=== PATIENT | male | born 1990 | race Caucasian/White ===

== ENCOUNTER 2020-05-06 20:30 | Emergency (ER) | payer SELFPAY ==
--- NOTE | 2020-05-06 20:56 | ER Document Report ---
ED Medical Screen (RME) - General Chief Complaint: Elbow Injury Stated Complaint: ELBOW PAIN Time Seen by Provider: 05/06/20 20:52 Primary Care Provider: BRIDGET ARZATE [Primary Care Provider] - Follow up as needed Mode of Arrival: Ambulatory Information source: Patient Notes: Otherwise healthy 29-year-old male presents the emergency department chief complaint of pain to his left arm. Patient reports pain in the left elbow that radiates down into his left fourth and fifth fingers. He states his fingers feel like they are burning. He denies any specific injury to these areas. He did have a laceration to his hand prior to the onset of the symptoms. Cap refill less than 3 seconds, normal motor and sensation distal to area of concern. No obvious swelling, erythema or ecchymosis. I have greeted and performed a rapid initial assessment of this patient. A comprehensive ED assessment and evaluation of the patient, analysis of test results and completion of the medical decision making process will be conducted by additional ED providers. I have specifically instructed the patient or family members with the patient to immediately return to any nursing staff should anything change in the patient's condition or with their chief complaint. - Related Data Allergies/Adverse Reactions: acetaminophen [From Vicodin] Allergy (Mild, Verified 06/29/13 07:11) hydrocodone bitartrate [From Vicodin] Allergy (Mild, Verified 06/29/13 07:11) morphine [Morphine] Allergy (Mild, Verified 06/29/13 07:11) Physical Exam - Vital signs Vitals: Temp Pulse Resp BP Pulse Ox 98.5 F 76 16 152/87 H 98 05/06/20 20:44 05/06/20 20:44 05/06/20 20:44 05/06/20 20:44 05/06/20 20:44 Course - Vital Signs Vital signs: Temp Pulse Resp BP Pulse Ox 98.5 F 76 16 152/87 H 98 05/06/20 20:50 05/06/20 20:44 05/06/20 20:44 05/06/20 20:44 05/06/20 20:44 Doctor's Discharge - Discharge Referrals: BRIDGET ARZATE [Primary Care Provider] - Follow up as needed
--- NOTE | 2020-05-06 21:32 | RADIOLOGY REPORT (SQ) ---
4 VIEWS OF LEFT ELBOW HISTORY: Pain from elbow to fingers. COMPARISON: None. FINDINGS: No acute fracture or dislocation is seen. The joint spaces are preserved. No elbow joint effusion is evident. IMPRESSION: No acute fracture or malalignment.
[2020-05-06] MEDS ORDERED: PREDNISONE 20 MG TABLET PO ONE (22:11)
[2020-05-06 22:38] VITALS: BP 143/91
--- NOTE | 2020-05-07 01:27 | ER Document Report ---
Entered by LRAA DOWLING SCRIBE 05/06/20 [id number] Acting as scribe for:DONOVAN NAZARIO IV, MD ED Extremity Problem, Upper - General Chief Complaint: Elbow Injury Stated Complaint: ELBOW PAIN Time Seen by Provider: 05/06/20 20:52 Primary Care Provider: BRIDGET ARZATE [NO LOCAL MD] - Follow up as needed BRENNAN MCINTOSH JR, [ACTIVE PROVISIONAL STAFF] - 05/07/20 (Call 05/07/20 to schedule follow up appointment) Mode of Arrival: Ambulatory Information source: Patient Notes: This 29 year old male patient presents to the ED today with complaints of left elbow pain that started prior to arrival. Patient describes that pain as a burning sensation that radiates down to his 4th and 5th fingers of his left hand. He also states that he feels a numbing sensation to his 4th and 5th fingers "every once in a while." He reports that the pain is better when his left arm is in a supine position and worse when the arm is bent towards his body. Denies any neck pain. He notes that he sustained a laceration to the pad of his left thumb x2 months prior that he treated with peroxide and bandaged. Patient is left hand dominant. - Related Data Allergies/Adverse Reactions: acetaminophen [From Vicodin] Allergy (Mild, Verified 06/29/13 07:11) hydrocodone bitartrate [From Vicodin] Allergy (Mild, Verified 06/29/13 07:11) morphine [Morphine] Allergy (Mild, Verified 06/29/13 07:11) Past Medical History - General Information source: Patient - Social History Smoking Status: Current Every Day Smoker Cigarette use (# per day): Yes Chew tobacco use (# tins/day): No Smoking Education Provided: No Family History: Reviewed & Not Pertinent Patient has suicidal ideation: No Patient has homicidal ideation: No Review of Systems - Review of Systems Constitutional: No symptoms reported EENT: No symptoms reported Cardiovascular: No symptoms reported Respiratory: No symptoms reported Gastrointestinal: No symptoms reported Genitourinary: No symptoms reported Male Genitourinary: No symptoms reported Musculoskeletal: See HPI, Joint pain - Left elbow. denies: Neck pain Skin: No symptoms reported Hematologic/Lymphatic: No symptoms reported Neurological/Psychological: See HPI, Numbness - 4th and 5th digits of left hand -: Yes All other systems reviewed and negative Physical Exam - Vital signs Vitals: Temp Pulse Resp BP Pulse Ox 98.5 F 76 16 152/87 H 98 05/06/20 20:44 05/06/20 20:44 05/06/20 20:44 05/06/20 20:44 05/06/20 20:44 - General General appearance: Alert In distress: None - HEENT Head: Normocephalic, Atraumatic Eyes: Normal Pupils: PERRL - Respiratory Respiratory status: No respiratory distress Chest status: Nontender Breath sounds: Normal Chest palpation: Normal - Cardiovascular Rhythm: Regular Heart sounds: Normal auscultation Murmur: No Friction rub: No Gallop: None auscultated Normal capillary refill: Yes - Abdominal Inspection: Normal Distension: No distension Bowel sounds: Normal Tenderness: Nontender - Abdomen soft Organomegaly: No organomegaly - Back Back: Normal, Nontender - Extremities Elbow: Other - Intact flexion and extension at left elbow joint. Pain is worse with palpation of ulnar side of left elbow joint Hand: Other - Decreased sensation to palpation of 4th and 5th digits of left hand - Neurological Neuro grossly intact: Yes Orientation: AAOx4 Cranial nerves: No: Facial palsy Additional motor exam normals: No: Weakness - No motor weakness to hands or extremities bilaterally - Psychological Associated symptoms: Normal affect, Normal mood - Skin Skin Temperature: Warm Skin Moisture: Dry Skin Color: Normal Course - Re-evaluation Re-evalutation: 05/06/20 22:02 Results of ED MSE, diagnosis, plan of treatment, discussed with patient. Follow-up discussed with patient. All questions answered prior to discharge. Emergency signs and symptoms, reasons to return to the emergency department dis cussed with patient. - Vital Signs Vital signs: Temp Pulse Resp BP Pulse Ox 98.4 F 78 18 143/91 H 97 05/06/20 22:36 05/06/20 22:36 05/06/20 22:36 05/06/20 22:36 05/06/20 22:36 - Diagnostic Test Radiology reviewed: Reports reviewed Discharge - Discharge Clinical Impression: Ulnar nerve entrapment at elbow Qualifiers: Laterality: left Qualified Code(s): G56.22 - Lesion of ulnar nerve, left upper limb Condition: Good Disposition: HOME, SELF-CARE Additional Instructions: Return to the Emergency Department without delay if any worse. You have been diagnosed with ulnar nerve entrapment. This is also called cubital tunnel syndrome or ulnar nerve neuropathy. You can research home remedies and different types of splints on Google and YouTube. You are being prescribed steroids as they sometimes will help with the inflammation and give relief of discomfort. Be certain to follow-up with the orthopedist you have been referred to. HOME CARE INSTRUCTIONS & INFORMATION: Thank you for choosing us for your medical needs. We hope you're satisfied with the care you received. After you leave, you must properly care for your problem and, at the same time, observe its progress. Any condition can change. Some illnesses can change rapidly over hours or days. If your condition worsens, return to the Emergency Department or see your physician promptly. ABOUT YOUR X-RAYS AND EKG'S: If you had an EKG or X-rays taken, they have been read by the Emergency Physician. The X-rays and EKG's will also be read by a Radiologist or Director [facility] within 24 hours. If discrepancies are noted, you will be notified by telephone. Please be certain the ED has a correct telephone number & address where you can be reached. Also, realize that some fractures or abnormalities do not show up on initial X-rays. If your symptoms continue, see your physician. ABOUT YOUR LABORATORY TEST: If you had laboratory tests, the results have been reviewed by the Emergency Physician. Some test results (for example cultures) may not be available for several days. You will be contacted if any test result shows you need additional treatment. Please be certain the ED has a correct telephone number and address where you can be reached. ABOUT YOUR MEDICATIONS: You will receive instructions on how to take your medicine on the prescription label you receive. Additional information may be provided by the Pharmacy. If you have questions afterwards, call the ED for clarification or further instructions. Some prescribed medications may cause drowsiness. Do not perform tasks such as driving a car or operating machinery without consulting your Pharmacist. If you feel you need a refill of pain medication, your condition will need re-evaluation. Please do not call for a refill of any medication. ABOUT YOUR SIGNATURE: Signature of this document acknowledges to followin. Understanding that you received emergency treatment and that you may be released before al medical problems are known or treated. Please be certain the ED has a correct phone number & address where you can be reached. 2. Acknowledgement that you will arrange for follow-up care as recommended. 3. Authorization for the Emergency Physician to provide information to your follow-up Physician in order to maximize your care. AT ANY TIME, IF YOUR SYMPTOMS CHANGE SIGNIFICANTLY OR WORSEN OR YOU DEVELOP NEW SYMPTOMS, RETURN TO THE EMERGENCY DEPARTMENT IMMEDIATELY FOR RE-EVALUATION. OUR GOAL IS TO PROVIDE EXCELLENT MEDICAL CARE! WE HOPE THAT WE HAVE MET YOUR EXPECTATIONS DURING YOUR EMERGENCY DEPARTMENT VISIT AND THAT YOU FEEL YOU HAVE RECEIVED EXCELLENT CARE! Prescriptions: Prednisone [Deltasone 20 mg Tablet] 3 tab PO DAILY 4 Days #12 tablet Referrals: HUEY,NO [NO LOCAL MD] - Follow up as needed BRENNAN MCINTOSH JR, DO [ACTIVE PROVISIONAL STAFF] - 05/07/20 (Call 05/07/20 to schedule follow up appointment) I personally performed the services described in the documentation, reviewed and edited the documentation which was dictated to the scribe in my presence, and it accurately records my words and actions.
== END 2020-05-06 22:39 | disposition home or self-care (01) ==
LOC: ER 20:30
DX: G56.22 Lesion of ulnar nerve, left upper limb (principal); M25.522 Pain in left elbow; Z88.8 Allergy status to other drugs, medicaments and biological substances; F17.210 Nicotine dependence, cigarettes, uncomplicated
CPT/HCPCS: 99283; 73080; J7512

== ENCOUNTER 2020-05-30 19:32 | Emergency (ER) | payer SELFPAY ==
[2020-05-30 20:36] VITALS: BP 146/85
--- NOTE | 2020-05-30 20:58 | ER Document Report ---
ED Medical Screen (RME) - General Chief Complaint: Chest Pain Stated Complaint: CHEST PAIN Time Seen by Provider: 05/30/20 20:52 Mode of Arrival: Ambulatory Information source: Patient Notes: HPI; 29-year-old male presents to the emergency room complaining of intermittent left-sided chest pain that radiates into his left arm for the past 2 weeks. Describes it as a throbbing sensation. Denies any nausea, vomiting, no diaphoresis. States he does do a lot of heavy lifting at work. States nothing makes it worse, nothing makes it better. States he was recently diagnosed with carpal tunnel to his left arm tried taking prednisone without relief. PE: Alert and oriented x3. Mild distress noted. Lungs: Clear to auscultation without rales, rhonchi, wheezes. Heart: Regular rate rhythm without murmurs, rubs, gallops. Chest wall nontender to palpation. I have greeted and performed a rapid initial assessment of this patient. A comprehensive ED assessment and evaluation of the patient, analysis of test results and completion of the medical decision making process will be conducted by additional ED providers. I have specifically instructed the patient or family members with the patient to immediately return to any nursing staff should anything change in the patient's condition or with their chief complaint. TRAVEL OUTSIDE OF THE [place] IN LAST 30 DAYS: No - Related Data Allergies/Adverse Reactions: acetaminophen [From Vicodin] Allergy (Mild, Verified 06/29/13 07:11) hydrocodone bitartrate [From Vicodin] Allergy (Mild, Verified 06/29/13 07:11) morphine [Morphine] Allergy (Mild, Verified 06/29/13 07:11) Past Medical History - Social History Chew tobacco use (# tins/day): No Frequency of alcohol use: Social Drug Abuse: None Physical Exam - Vital signs Vitals: Temp Pulse Resp BP Pulse Ox 98.8 F 76 16 146/85 H 93 05/30/20 20:35 05/30/20 20:35 05/30/20 20:35 05/30/20 20:35 05/30/20 20:35 Course - Vital Signs Vital signs: Temp Pulse Resp BP Pulse Ox 98.3 F 76 16 146/85 H 93 05/30/20 20:48 05/30/20 20:35 05/30/20 20:35 05/30/20 20:35 05/30/20 20:35
--- NOTE | 2020-05-30 21:29 | RADIOLOGY REPORT (SQ) ---
CLINICAL INDICATION: chest pain. TECHNIQUE: PA and lateral views were obtained of the chest COMPARISON: None. FINDINGS: The cardiomediastinal silhouette is normal. The lungs are grossly clear. No evidence of effusion or pneumothorax. Visualized bones are unremarkable. Right lateral chest incompletely imaged. IMPRESSION: No evidence of active intrathoracic disease .
--- NOTE | 2020-05-30 22:04 | EKG REPORT ---
SEVERITY:- NORMAL ECG - SINUS RHYTHM : Confirmed by: Amena Bansal MD 30-May-2020 22:03:22
[2020-05-30 22:29] LABS: ABSOLUTE EOSINOPHILS # (AUTO) 0.1 10^3/uL (0.0-0.6); ABSOLUTE LYMPHOCYTES (AUTO) 1.3 10^3/uL (0.5-4.7); ABSOLUTE MONOCYTES (AUTO) 0.3 10^3/uL (0.1-1.4); ABSOLUTE NEUT (AUTO) 13.2 10^3/uL (1.7-8.2); BASOPHILS % (AUTO) 0.3 % (0-2); EOSINOPHILS % (AUTO) 0.4 % (0-6); HEMOGLOBIN 18.3 g/dL (13.5-17.0); LYMPHOCYTES % (AUTO) 8.7 % (13-45); MEAN CORPUSCULAR VOLUME 91 fl (80-97); PLATELET COUNT 269 10^3/uL (150-450); RED BLOOD COUNT 5.92 10^6/uL (4.35-5.55); RED CELL DISTRIBUTION WIDTH 13.2 % (11.5-14.0); SEGMENTED NEUTROPHILS % (AUTO) 88.6 % (42-78); TOTAL CELLS COUNTED % (AUTO) 100 %; WHITE BLOOD COUNT 14.9 10^3/uL (4.0-10.5)
[2020-05-30 22:56] LABS: ALBUMIN 5.3 g/dL (3.5-5.0); ALKALINE PHOSPHATASE 78 U/L (38-126); ANION GAP 10 (5-19); ASPARTATE AMINO TRANSFERASE 34 U/L (17-59); BILIRUBIN,DIRECT 0.1 mg/dL (0.0-0.4); BILIRUBIN,TOTAL 0.6 mg/dL (0.2-1.3); BLOOD UREA NITROGEN 10 mg/dL (7-20); CALCIUM 10.3 mg/dL (8.4-10.2); CARBON DIOXIDE 26 mmol/L (22-30); CHLORIDE 101 mmol/L (98-107); CREATINE KINASE 105 U/L (55-170); GLUCOSE 117 mg/dL (75-110); POTASSIUM 5.4 mmol/L (3.6-5.0); TOTAL PROTEIN 8.8 g/dL (6.3-8.2)
[2020-05-30 23:08] LABS: CREATINE KINASE MB 0.83 ng/mL (<4.55)
[2020-05-30 23:09] LABS: TROPONIN I < 0.012 ng/mL
== END 2020-05-30 23:11 | disposition left against medical advice (07) ==
LOC: ER 19:32
DX: R07.9 Chest pain, unspecified (principal); Z88.6 Allergy status to analgesic agent
CPT/HCPCS: 36415; 71046; 80053; 82550; 82553; 84484; 85025; 93005; 93010; 99281

== ENCOUNTER 2020-07-11 20:59 | Emergency (ER) | payer SELFPAY ==
[2020-07-11] MEDS ORDERED: ASPIRIN 81 MG TABLET, CHEWABLE PO ONE (21:26)
--- NOTE | 2020-07-11 21:26 | ER Document Report ---
ED Medical Screen (RME) - General Chief Complaint: Chest Pain Stated Complaint: CHEST PAIN Time Seen by Provider: 07/11/20 21:21 Mode of Arrival: Ambulatory Information source: Patient Notes: 29-year-old male presented to ED for chest pain to the left side of his chest that started about noon time. He states he has been here 2 times before and they told him that the chest pain was from carpal tunnel syndrome and put him on prednisone. He states the pain is in his chest and goes to his armpit. He is alert oriented respirations regular nonlabored speaking in full sentences. He states he was dizzy yesterday when he walked but the chest pain started today at noon. States he did have some numbness to his fingers and then he started having the chest pain. TRAVEL OUTSIDE OF THE [place] IN LAST 30 DAYS: No - HPI Onset: Other Onset/Duration: Intermittent Quality of pain: Pressure Severity: Moderate Pain Level: 3 Associated Symptoms: Chest pain, Dizzy/lightheaded, Other - Numbness in the fingers of the left hand and pain in his axilla Exacerbated by: Denies Relieved by: Other - States it feels better if he holds his arm above his head and holds his chest Similar symptoms previously: Yes Recently seen / treated by doctor: No - Related Data Smoking: Other - ppd Frequency of alcohol use: Social Drug Abuse: None Allergies/Adverse Reactions: acetaminophen [From Vicodin] Allergy (Mild, Verified 06/29/13 07:11) hydrocodone bitartrate [From Vicodin] Allergy (Mild, Verified 06/29/13 07:11) morphine [Morphine] Allergy (Mild, Verified 06/29/13 07:11) Past Medical History - General Information source: Patient - Social History Cigarette use (# per day): Yes - Pack per day Frequency of alcohol use: Social Drug Abuse: None 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
[2020-07-11 21:59] LABS: ABSOLUTE LYMPHOCYTES (AUTO) 1.1 10^3/uL (0.5-4.7); ABSOLUTE MONOCYTES (AUTO) 0.3 10^3/uL (0.1-1.4); ABSOLUTE NEUT (AUTO) 15.3 10^3/uL (1.7-8.2); BASOPHILS % (AUTO) 0.2 % (0-2); EOSINOPHILS % (AUTO) 0.3 % (0-6); HEMATOCRIT 53.5 % (37.9-51.0); LYMPHOCYTES % (AUTO) 6.3 % (13-45); MEAN CORPUSCULAR HEMOGLOBIN 30.7 pg (27.0-33.4); MEAN CORPUSCULAR HGB CONC 33.6 g/dL (32.0-36.0); MEAN CORPUSCULAR VOLUME 91 fl (80-97); MONOCYTES % (AUTO) 1.7 % (3-13); PLATELET COUNT 254 10^3/uL (150-450); RED BLOOD COUNT 5.86 10^6/uL (4.35-5.55); RED CELL DISTRIBUTION WIDTH 13.7 % (11.5-14.0); SEGMENTED NEUTROPHILS % (AUTO) 91.5 % (42-78); TOTAL CELLS COUNTED % (AUTO) 100 %; WHITE BLOOD COUNT 16.7 10^3/uL (4.0-10.5)
[2020-07-11 22:14] LABS: APPEARANCE,URINE CLEAR; BILIRUBIN,URINE NEGATIVE (NEGATIVE); COLOR,URINE YELLOW; GLUCOSE, URINE NEGATIVE (NEGATIVE); KETONES,URINE NEGATIVE (NEGATIVE); LEUKOCYTE ESTERASE,URINE NEGATIVE (NEGATIVE); NITRITE,URINE NEGATIVE (NEGATIVE); PROTEIN,URINE NEGATIVE (NEGATIVE); URINE SPECIFIC GRAVITY 1.013
[2020-07-11 22:19] LABS: ALKALINE PHOSPHATASE 87 U/L (38-126); ANION GAP 8 (5-19); ASPARTATE AMINO TRANSFERASE 30 U/L (17-59); BILIRUBIN,TOTAL 0.6 mg/dL (0.2-1.3); BLOOD UREA NITROGEN 11 mg/dL (7-20); CALCIUM 10.1 mg/dL (8.4-10.2); CARBON DIOXIDE 26 mmol/L (22-30); CHLORIDE 102 mmol/L (98-107); CREATINE KINASE 88 U/L (55-170); GLUCOSE 120 mg/dL (75-110); POTASSIUM 5.1 mmol/L (3.6-5.0); TOTAL PROTEIN 8.5 g/dL (6.3-8.2)
--- NOTE | 2020-07-11 22:22 | RADIOLOGY REPORT (SQ) ---
CHEST X-RAY 2 view on 07/11/2020 at 10:10 PM CLINICAL INDICATION: Chest pain COMPARISON: 05/30/2020 FINDINGS: The lungs are clear. Cardiac, hilar and mediastinal contours are within normal limits. Pulmonary vascularity is within normal limits. No bony abnormality is noted. IMPRESSION: No active disease.
[2020-07-12 00:13] VITALS: BP 141/97
--- NOTE | 2020-07-12 15:28 | EKG REPORT ---
SEVERITY:- NORMAL ECG - SINUS RHYTHM : Confirmed by: Ermias Jacob MD 12-Jul-2020 15:28:06
== END 2020-07-12 03:45 | disposition left against medical advice (07) ==
LOC: ER 20:59
DX: R07.9 Chest pain, unspecified (principal); R20.0 Anesthesia of skin; R42 Dizziness and giddiness; Z88.8 Allergy status to other drugs, medicaments and biological substances; Z88.6 Allergy status to analgesic agent; Z88.5 Allergy status to narcotic agent; Z72.0 Tobacco use; Z53.20 Procedure and treatment not carried out because of patient's decision for unspecified reasons
CPT/HCPCS: 36415; 71046; 80053; 81001; 82550; 84484; 85025; 93005; 93010; 99281

== ENCOUNTER 2020-08-06 23:11 | Emergency (ER) | payer SELFPAY ==
--- NOTE | 2020-08-07 00:26 | RADIOLOGY REPORT (SQ) ---
EXAM DESCRIPTION: XR CHEST 2 VIEWS COMPLETED DATE/TME: 08/07/2020 00:00 CLINICAL HISTORY: 29 years, Male, chest wall pain COMPARISON: Prior chest radiograph from 07/11/2020 NUMBER OF VIEWS: 2 TECHNIQUE: Frontal and lateral were obtained LIMITATIONS: None. FINDINGS: Cardiac and mediastinal contours are normal in appearance. Lungs are clear. No pleural effusion or pneumothorax. IMPRESSION: No acute disease. copyright 2010 [employer]- All Rights Reserved
[2020-08-07] MEDS ORDERED: NORMAL SALINE 1000 ML 1,000 ML IV ONE (01:26)
[2020-08-07] MEDS ORDERED: KETOROLAC TROMETHAMINE INJ/PF 30 MG/1 ML SDV IV ONE (01:26)
--- NOTE | 2020-08-07 01:27 | ER Document Report ---
ED General - General Chief Complaint: Chest Wall Pain Stated Complaint: CHEST PAIN Time Seen by Provider: 08/07/20 01:15 Notes: Patient is a 29-year-old male that comes emergency department for chief complaint of left-sided chest pain. He states that pain is been present throughout the day more noticeably, he states he has had this pain inter mittently for months. 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 He denies specific injury, he denies shortness of breath, dizziness, nausea, vomiting, fever, cough. He smokes, reports occasional alcohol, denies any recreational drugs. He states that his father had a heart attack in his 30s and then at age 45. TRAVEL OUTSIDE OF THE [place] IN LAST 30 DAYS: No - Related Data Allergies/Adverse Reactions: hydrocodone bitartrate [From Vicodin] Allergy (Mild, Verified 08/06/20 23:54) morphine [Morphine] Allergy (Mild, Verified 08/06/20 23:54) codeine Allergy (Verified 08/06/20 23:55) shellfish derived Allergy (Verified 08/06/20 23:55) Past Medical History - General Information source: Patient - Social History Smoking Status: Current Every Day Smoker Frequency of alcohol use: None Drug Abuse: None Lives with: Family Family History: Reviewed & Not Pertinent Surgical Hx: Negative - Immunizations Immunizations up to date: Yes Hx Diphtheria, Pertussis, Tetanus Vaccination: Yes Review of Systems - Review of Systems Constitutional: No symptoms reported EENT: No symptoms reported Cardiovascular: See HPI Respiratory: See HPI Gastrointestinal: No symptoms reported Genitourinary: No symptoms reported Male Genitourinary: No symptoms reported Musculoskeletal: See HPI Skin: No symptoms reported Hematologic/Lymphatic: No symptoms reported Neurological/Psychological: No symptoms reported Physical Exam - Vital signs Vitals: Temp Pulse BP Pulse Ox 98.5 F 69 141/89 H 97 08/06/20 23:26 08/06/20 23:26 08/06/20 23:26 08/06/20 23:26 - Notes Notes: GENERAL: Alert, interacts well. No acute distress. HEAD: Normocephalic, atraumatic. EYES: Pupils equal, round, and reactive to light. Extraocular movements intact. ENT: Oral mucosa moist, tongue midline. Oropharynx unremarkable. Airway patent. NECK: Full range of motion. Supple. Trachea midline. No lymphadenopathy. LUNGS: Clear to auscultation bilaterally, no wheezes, rales, or rhonchi. No respiratory distress. There is tenderness over the left lateral chest wall just below the nipple, this is reproducible. Pain in the area that radiates to the axillary area with movement of the left arm/shoulder. Otherwise unremarkable. HEART: Regular rate and rhythm. No murmur ABDOMEN: Soft, non-tender. Non-distended. EXTREMITIES: Moves all 4 extremities spontaneously. No edema, normal radial and dorsalis pedis pulses bilaterally. No cyanosis. BACK: no cervical, thoracic, lumbar midline tenderness. No saddle anesthesia, normal distal neurovascular exam. Moves all extremities in full range of motion. NEUROLOGICAL: Alert and oriented x3. Normal speech. Cranial nerves II through XI I grossly intact. Strength 5/5 in all extremities. PSYCH: Normal affect, normal mood. SKIN: Warm, dry, normal turgor. No rashes or lesions noted. Course - Re-evaluation Re-evalutation: Patient is well-appearing on exam. Unremarkable vital signs. CBC shows mild leukocytosis and elevation of hemoglobin, hemoglobin is always elevated on review of previous records. Suspect this secondary patient smoking, I did discuss this with patient, discussed the potential risks of this as well. Discussed smoking cessation as well. Chemistry unremarkable, CK mildly elevated, troponin is negative despite symptoms going on for well over 8 hours and patient having the symptoms frequently in the past. EKG nonspecific. Chest x-ray unremarkable. Patient's heart score is 1. Very low suspicion of ACS. In addition to this patient is very reproducible chest wall pain which is worse with movement of the left arm especially with abduction of the left arm/shoulder. Patient is left-handed. Discussed details with patient, starting on muscle x-rays, anti-inflammatories, discussed follow-up with primary care, discussed return precautions in detail. Patient states appreciation and agreement. - Vital Signs Vital signs: Temp Pulse Resp BP Pulse Ox 97.8 F 66 18 135/78 H 97 08/07/20 02:58 08/07/20 02:58 08/07/20 02:58 08/07/20 02:58 08/07/20 02:58 - Laboratory Result Diagrams: 08/07/20 01:39 08/07/20 01:39 Laboratory results interpreted by me: 08/07/20 08/07/20 01:39 01:39 WBC 11.9 H Hgb 17.3 H Lymph % (Auto) 10.6 L [place] % (Auto) 2.1 L Absolute [place] (auto) 10.2 H Seg Neutrophils % 86.0 H Glucose 111 H Creatine Kinase 193 H - EKG Interpretation by Me Additional EKG results interpreted by me: EKG shows sinus rhythm at a rate of 70, QTc 385, normal axis, no T wave inversions or systemic changes in consecutive leads Discharge - Discharge Clinical Impression: Chest wall pain Condition: Stable Disposition: HOME, SELF-CARE Additional Instructions: Your evaluation is consistent with strain and pain coming from your chest wall. I recommend heat over the area, anti-inflammatory as prescribed, and the muscle relaxer especially at night. Symptoms should simply resolve with time. Stop smoking to reduce your risks, I also recommend that because your hemoglobin (red blood cells) are elevated because of smoking that you consider donating blood (not plasma). Follow-up with primary care for additional management. Return if you worsen including difficulty breathing, severe worsening pain, fever, passing out, or any other concerning or worsening symptoms. Prescriptions: Cyclobenzaprine HCl 1 - 2 tab PO Q8H PRN #20 tablet PRN Reason: Naproxen 500 mg PO BID PRN #20 tablet PRN Reason: Forms: Smoking Cessation Education, Return to Work
[2020-08-07 01:53] LABS: ABSOLUTE EOSINOPHILS # (AUTO) 0.1 10^3/uL (0.0-0.6); ABSOLUTE LYMPHOCYTES (AUTO) 1.3 10^3/uL (0.5-4.7); ABSOLUTE MONOCYTES (AUTO) 0.2 10^3/uL (0.1-1.4); ABSOLUTE NEUT (AUTO) 10.2 10^3/uL (1.7-8.2); BASOPHILS % (AUTO) 0.4 % (0-2); EOSINOPHILS % (AUTO) 0.9 % (0-6); HEMATOCRIT 49.8 % (37.9-51.0); HEMOGLOBIN 17.3 g/dL (13.5-17.0); LYMPHOCYTES % (AUTO) 10.6 % (13-45); MEAN CORPUSCULAR HEMOGLOBIN 31.3 pg (27.0-33.4); MEAN CORPUSCULAR HGB CONC 34.7 g/dL (32.0-36.0); MEAN CORPUSCULAR VOLUME 90 fl (80-97); MONOCYTES % (AUTO) 2.1 % (3-13); PLATELET COUNT 252 10^3/uL (150-450); RED BLOOD COUNT 5.52 10^6/uL (4.35-5.55); RED CELL DISTRIBUTION WIDTH 13.4 % (11.5-14.0); TOTAL CELLS COUNTED % (AUTO) 100 %; WHITE BLOOD COUNT 11.9 10^3/uL (4.0-10.5)
[2020-08-07 02:24] LABS: ANION GAP 8 (5-19); BLOOD UREA NITROGEN 11 mg/dL (7-20); CALCIUM 9.8 mg/dL (8.4-10.2); CARBON DIOXIDE 24 mmol/L (22-30); CHLORIDE 107 mmol/L (98-107); CREATINE KINASE 193 U/L (55-170); GLUCOSE 111 mg/dL (75-110); POTASSIUM 4.9 mmol/L (3.6-5.0)
[2020-08-07 03:03] VITALS: BP 135/78
--- NOTE | 2020-08-07 08:51 | EKG REPORT ---
SEVERITY:- ABNORMAL ECG - SINUS RHYTHM : Confirmed by: Ermias Jacob MD 07-Aug-2020 08:50:30
== END 2020-08-07 02:59 | disposition home or self-care (01) ==
LOC: ER 23:11
DX: R07.89 Other chest pain (principal); F17.200 Nicotine dependence, unspecified, uncomplicated; Z88.8 Allergy status to other drugs, medicaments and biological substances
CPT/HCPCS: 93005; 99285; 96361; 96374; 36415; 82550; 85025; 80048; 84484; 71046; 93010; J1885; J7030

== ENCOUNTER 2020-09-18 20:42 | Emergency (ER) | payer SELFPAY ==
--- NOTE | 2020-09-18 21:13 | ER Document Report ---
ED Medical Screen (RME) - General Chief Complaint: Dizziness Stated Complaint: DIZZINESS,EXTREMITY NUMBNESS Time Seen by Provider: 09/18/20 21:00 TRAVEL OUTSIDE OF THE [place] IN LAST 30 DAYS: No - HPI Notes: 09/18/20 21:09 29-year-old male presents emergency room today for dizziness for the last 4 months that is getting progressively worse over the last couple days, left-sided chest pain that gets worse when he moves his hand up, left calf pain that started today and numbness and tingling in his bilateral elbows that extends down to his hands. Patient has been seen multiple times emergency room for chest pain, has not followed up with a file drawer finisher or primary care provider because he states he does not have time. Reports that his father did from a heart attack at age 45 and started with MIs in his 30s. Denies any radiation of his chest pain. patient has been trying to cut down on smoking. denies any history of blood clots, any recent surgery, any recent diagnosis of any cancers, any recent immobilization or history of factor V. Denies any trauma to his left calf. I have greeted and performed a rapid initial assessment of this patient. A comprehensive ED assessment and evaluation of the patient, analysis of test results and completion of the medical decision making process will be conducted by additional ED providers. PHYSICAL EXAMINATION: GENERAL: Well-appearing, well-nourished and in no acute distress. CV: s1, s2 regular. Patient is able to reproduce chest pain with palpation on his left lateral aspect of the chest LUNGS: No respiratory distress Musculoskeletal: Normal range of motion. Tenderness to left calf on palpation. NEUROLOGICAL: Normal speech, normal gait. SKIN: Warm, Dry, normal turgor, no rashes or lesions noted. - Related Data Allergies/Adverse Reactions: hydrocodone bitartrate [From Vicodin] Allergy (Mild, Verified 08/06/20 23:54) morphine [Morphine] Allergy (Mild, Verified 08/06/20 23:54) codeine Allergy (Verified 08/06/20 23:55) shellfish derived Allergy (Verified 08/06/20 23:55) Past Medical History - Social History Family history: Reviewed & Not Pertinent - Immunizations Immunizations up to date: Yes Hx Diphtheria, Pertussis, Tetanus Vaccination: Yes Physical Exam - Vital signs Vitals: Temp Pulse Resp BP Pulse Ox 97.6 F 68 20 156/96 H 98 09/18/20 20:47 09/18/20 20:47 09/18/20 20:47 09/18/20 20:47 09/18/20 20:47 Course - Vital Signs Vital signs: Temp Pulse Resp BP Pulse Ox 97.6 F 68 20 156/96 H 98 09/18/20 20:47 09/18/20 20:47 09/18/20 20:47 09/18/20 20:47 09/18/20 20:47
[2020-09-18 22:27] LABS: ABSOLUTE EOSINOPHILS # (AUTO) 0.5 10^3/uL (0.0-0.6); ABSOLUTE LYMPHOCYTES (AUTO) 2.6 10^3/uL (0.5-4.7); ABSOLUTE MONOCYTES (AUTO) 0.8 10^3/uL (0.1-1.4); ABSOLUTE NEUT (AUTO) 7.2 10^3/uL (1.7-8.2); BASOPHILS % (AUTO) 0.3 % (0-2); EOSINOPHILS % (AUTO) 4.1 % (0-6); HEMATOCRIT 49.2 % (37.9-51.0); HEMOGLOBIN 17.2 g/dL (13.5-17.0); LYMPHOCYTES % (AUTO) 23.3 % (13-45); MEAN CORPUSCULAR HEMOGLOBIN 31.5 pg (27.0-33.4); MEAN CORPUSCULAR VOLUME 90 fl (80-97); MONOCYTES % (AUTO) 7.6 % (3-13); PLATELET COUNT 258 10^3/uL (150-450); RED BLOOD COUNT 5.46 10^6/uL (4.35-5.55); RED CELL DISTRIBUTION WIDTH 13.1 % (11.5-14.0); SEGMENTED NEUTROPHILS % (AUTO) 64.7 % (42-78); TOTAL CELLS COUNTED % (AUTO) 100 %; WHITE BLOOD COUNT 11.1 10^3/uL (4.0-10.5)
--- NOTE | 2020-09-18 22:27 | RADIOLOGY REPORT (SQ) ---
EXAM DESCRIPTION: ULTRASOUND- left lower extremity venous Doppler ultrasound CLINICAL HISTORY: History of left calf pain. COMPARISON: None TECHNIQUE: Bailey scale, color and Doppler sonographic evaluation of the left lower extremity was performed. FINDINGS: There is questionable mild intimal thickening involving the left popliteal vein. There is otherwise no evidence of acute/chronic deep venous thrombosis in the left common femoral through proximal calf veins, including the popliteal,posterior tibial veins and left greater saphenous vein/common femoral vein junction. Normal color/phasic flow, augmentation, compressibility and lack of filling defects, is demonstrated in these visualized vessels. IMPRESSION: Questionable mild intimal thickening involving the left popliteal vein. No discrete deep vein thrombosis visualized. Consider attention on follow-up.
[2020-09-18 22:42] LABS: ALBUMIN 4.6 g/dL (3.5-5.0); ALKALINE PHOSPHATASE 74 U/L (38-126); ANION GAP 11 (5-19); ASPARTATE AMINO TRANSFERASE 27 U/L (17-59); BILIRUBIN,DIRECT 0.3 mg/dL (0.0-0.4); BILIRUBIN,TOTAL 0.5 mg/dL (0.2-1.3); BLOOD UREA NITROGEN 10 mg/dL (7-20); CALCIUM 9.7 mg/dL (8.4-10.2); CARBON DIOXIDE 26 mmol/L (22-30); CHLORIDE 102 mmol/L (98-107); GLUCOSE 91 mg/dL (75-110); POTASSIUM 4.1 mmol/L (3.6-5.0); TOTAL PROTEIN 7.7 g/dL (6.3-8.2)
--- NOTE | 2020-09-18 23:47 | ER Document Report ---
ED General - General Chief Complaint: Leg Pain Stated Complaint: DIZZINESS,EXTREMITY NUMBNESS Time Seen by Provider: 09/18/20 21:00 Primary Care Provider: [facility] [Provider Group] - Follow up as needed CARO CHILD MD [COMMUNITY BASED STAFF] - Follow up as needed TRAVEL OUTSIDE OF THE [place] IN LAST 30 DAYS: No - HPI Notes: 29-year-old male presents with left leg pain. Patient states the pain began yesterday. He denies any known injuries. He states that it feels like a baseball is in my calf and additionally has a burning sensation near the inside of his knee. Pain is made worse by sitting, improves with standing. He has not taken any medication at home. 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 Patient states this is his main reason for presentation to the emergency department today. He also mentions that he has been having 4 months of dizziness, left sided chest pain and numbness/tingling from his elbows down to his hands. Patient states he is unable to predict what days he will experience dizziness. He states that he will have an episode 1 day and be fine for a while, then out of the blue will have another episode. He mostly ex periences dizziness after he has been standing for a long time or if he quickly makes a turn while walking. He denies chest pain or dizziness currently. He has not establish care with a primary care doctor. - Related Data Allergies/Adverse Reactions: hydrocodone bitartrate [From Vicodin] Allergy (Mild, Verified 08/06/20 23:54) morphine [Morphine] Allergy (Mild, Verified 08/06/20 23:54) codeine Allergy (Verified 08/06/20 23:55) shellfish derived Allergy (Verified 08/06/20 23:55) Past Medical History - General Information source: Patient - Social History Smoking Status: Never Smoker Chew tobacco use (# tins/day): No Frequency of alcohol use: Occasional Drug Abuse: None Family History: Reviewed & Not Pertinent Patient has homicidal ideation: No - Immunizations Immunizations up to date: Yes Hx Diphtheria, Pertussis, Tetanus Vaccination: Yes Review of Systems - Review of Systems Constitutional: No symptoms reported EENT: No symptoms reported Cardiovascular: denies: Chest pain Respiratory: denies: Short of breath Gastrointestinal: No symptoms reported Genitourinary: No symptoms reported Male Genitourinary: No symptoms reported Musculoskeletal: See HPI Skin: No symptoms reported Hematologic/Lymphatic: No symptoms reported Neurological/Psychological: See HPI Physical Exam - Vital signs Vitals: Temp Pulse Resp BP Pulse Ox 97.6 F 68 20 156/96 H 98 09/18/20 20:47 09/18/20 20:47 09/18/20 20:47 09/18/20 20:47 09/18/20 20:47 - General General appearance: Appears well, Alert In distress: None - HEENT Head: Normocephalic, Atraumatic Extraocular movements intact: Yes Pupils: PERRL - Respiratory Breath sounds: Normal - Cardiovascular Rhythm: Regular Heart sounds: Normal auscultation Normal capillary refill: Yes - Abdominal Tenderness: Nontender - Extremities General upper extremity: Normal ROM General lower extremity: Normal ROM Notes: No swelling or erythema to left calf, no tenderness. No skin lesions or ecchymosis to left leg. No tenderness to left knee, full range of motion. He did have some mild tenderness to the distal left thigh. He is able to fully flex and extend the leg. Able to contract quadriceps. - Neurological Neuro grossly intact: Yes Cognition: Normal Orientation: AAOx4 Cerebellar coordination: Normal Motor strength normal: LUE, RUE, LLE, RLE Sensory: Normal - Psychological Associated symptoms: Normal affect - Skin Skin Temperature: Warm Course - Re-evaluation Re-evalutation: 29-year-old male with left leg pain, reportedly atraumatic. He has intact range of motion to all major joints of left leg. Has some mild tenderness to the distal medial thigh, potentially around the insertion point of muscles. He is able to fully flex and extend the leg, quadriceps intact. He has been ambulatory. Suspect that he has a muscle versus ligamentous strain. He had an ultrasound done through triage which is negative for DVT. He was given ibuprofen and lidocaine patch for his symptoms. Patient additionally reports multiple symptoms that have been ongoing for the past 4 months. I have reviewed his previous records, he has been seen in the ED multiple times. I reviewed previous chest x-rays, there is no report of a cervical rib which could potentially be causing thoracic outlet syndrome. Patient has no focal neuro deficits, he has intact motor and sensation to his upper and lower extremities. He had a laboratory evaluation done which was unremarkable including negative troponin and a nonischemic EKG G. I stressed with him the importance of please establish with a primary care group, he was given information for follow-up. Return precautions given, patient stable at time of discharge. - Vital Signs Vital signs: Temp Pulse Resp BP Pulse Ox 97.6 F 68 20 140/62 H 96 09/18/20 20:47 09/18/20 20:47 09/18/20 20:47 09/19/20 00:03 09/19/20 00:03 - Laboratory Result Diagrams: 09/18/20 22:06 09/18/20 22:06 Laboratory results interpreted by me: 09/18/20 22:06 WBC 11.1 H Hgb 17.2 H - Diagnostic Test Radiology reviewed: Image reviewed, Reports reviewed - EKG Interpretation by Me Additional EKG results interpreted by me: EKG is interpreted by me. Normal sinus rhythm, rate 67. Narrow QRS, QTC within normal limits. No ST segment elevation or depression. Discharge - Discharge Clinical Impression: Muscle strain Disposition: HOME, SELF-CARE Additional Instructions: It is very important that you care with a primary care physician. You have been provided contact information for Dr. Bueno who is the medical doctor of the day, additionally have provided information for [facility]. You may continue ibuprofen and lidocaine patches which are available [id number] for your muscle strain. Return to the emergency department for any concerning worsening symptoms. Referrals: CARO CHILD MD [COMMUNITY BASED STAFF] - Follow up as needed [facility] [Provider Group] - Follow up as needed
[2020-09-19] MEDS ORDERED: IBUPROFEN 800 MG TABLET PO ONE (00:05)
[2020-09-19] MEDS ORDERED: LIDOCAINE 5% (700 MG) TRANSDERMAL ADH..PATCH TP ONE (00:05)
[2020-09-19 00:42] VITALS: BP 140/62
--- NOTE | 2020-09-20 18:03 | EKG REPORT ---
SEVERITY:- OTHERWISE NORMAL ECG - SINUS RHYTHM LOW VOLTAGE IN FRONTAL LEADS : Confirmed by: Ermias Jacob MD 20-Sep-2020 18:03:20
== END 2020-09-19 00:46 | disposition home or self-care (01) ==
LOC: ER 20:42
DX: T14.8XXA Other injury of unspecified body region, initial encounter (principal); X58.XXXA Exposure to other specified factors, initial encounter; M79.605 Pain in left leg; R20.8 Other disturbances of skin sensation; R42 Dizziness and giddiness; R07.9 Chest pain, unspecified; R20.0 Anesthesia of skin; R20.2 Paresthesia of skin; Z88.6 Allergy status to analgesic agent; Z88.5 Allergy status to narcotic agent; Z91.013 Allergy to seafood
CPT/HCPCS: 36415; 80053; 83735; 84484; 85025; 93005; 93010; 93971; 99284